=== PATIENT | female | born 1985 | race Hispanic/Latino ===

== ENCOUNTER 2016-12-28 21:32 | Emergency (ER) | payer BC ==
[2016-12-28 21:33] VITALS: BMI 17.4
--- NOTE | 2016-12-28 21:54 | ED PDOC ---
HPI: Chest Pain Time Seen by Provider: 12/28/16 21:35 Chief Complaint (Nursing): Palpitations Chief Complaint (Provider): Chest Pain/Palpitations History Per: Patient History/Exam Limitations: no limitations Onset/Duration Of Symptoms: Sudden Onset Current Symptoms Are (Timing): Still Present Severity: Moderate Quality: "Pain" Additional Complaint(s): Lisa Botello is a 31 y/o female, with a history of Diabetes Mellitus and Supraventricular Tachycardia, presenting to the ER on 12/28/2016 with a sudden onset of chest pain and palpitations. Patient reports chest pain worsens when she is coughs. Patient additionally states her coug/congestion prompted her current symptoms which is also associated with shortness of breath. She says she has had episodes of supraventricular tachycardia in the past. PMD-[facility] Past Medical History Reviewed: Historical Data, Nursing Documentation, Vital Signs Vital Signs: Last Vital Signs Temp 97.7 F 12/28/16 22:40 Pulse 95 H 12/28/16 23:52 Resp 16 12/28/16 23:52 BP 114/70 12/28/16 23:52 Pulse Ox 97 12/28/16 23:52 - Medical History PMH: Anxiety, Cardia Arrhythmia (SVT), Diabetes (IDDM), Kidney Stones, Chronic Kidney Disease - Surgical History Surgical History: Hernia Repair Other surgeries: lithotripsy - Family History Family History: States: Unknown Family Hx - Living Arrangements Living Arrangements: With Family - Social History Current smoker - smoking cessation education provided: No Alcohol: Occasional Drugs: Denies - Home Medications Home Medications: Ambulatory Orders Medication Instructions Recorded Insulin Aspart, Recombinant See Protocol QID PRN 06/18/15 [Novolog] Insulin Glargine,Hum.rec.anlog 26 units SC HS 06/18/15 [Lantus] Ciprofloxacin HCl [Cipro] 500 mg PO Q12 #8 tablet 09/03/16 Metronidazole [Flagyl] 500 mg PO Q8 #12 tab 09/03/16 Azithromycin [Z-Bharathi] 250 mg PO DAILY #6 tab 12/29/16 - Allergies Allergies/Adverse Reactions: Allergies Allergy/AdvReac Type Severity Reaction Status Date / Time No Known Allergies Allergy Verified 09/02/16 10:52 AMANDA Risk Score for UA/NSTEMI - AMANDA Risk Score Age > 64: NO 3 or more CAD Risk Factors: NO Known CAD (Stenosis greater than 50%): NO Aspirin use in past 7 days: NO Severe Angina: NO EKG ST changes greater than 0.5mm: NO Positive Cardiac Marker: NO AMANDA Score: 0 Risk %: 5% Wells Criteria for PE - Wells Criteria for Pulmonary Embolism Clinical Signs and Symptoms of DVT: No P.E is #1 Diagnosis, or Equally Likely: No Heart Rate >100: No Immobilization at least 3 days;Surgery previous 4 weeks: No Previous, objectively diagnosed PE or DVT: No Hemoptysis: No Malignancy w/treatment within 6 months, or palliative: No Total Score: 0 Review of Systems ROS Statement: Except As Marked, All Systems Reviewed And Found Negative ENT: Positive for: Nose Congestion Cardiovascular: Positive for: Chest Pain, Palpitations Respiratory: Positive for: Cough, Shortness of Breath Neurological: Negative for: Headache, Dizziness Physical Exam - Reviewed Nursing Documentation Reviewed: Yes Vital Signs Reviewed: Yes - Physical Exam Appears: Positive for: Non-toxic, No Acute Distress Head Exam: Positive for: ATRAUMATIC, NORMOCEPHALIC Skin: Positive for: Normal Color. Negative for: Rash Eye Exam: Positive for: Normal appearance, EOMI, PERRL Neck: Positive for: Normal, Painless ROM, Supple Cardiovascular/Chest: Positive for: Tachycardia (w/ regular rhythm ). Negative for: Murmur Respiratory: Positive for: Normal Breath Sounds. Negative for: Wheezing, Respiratory Distress Gastrointestinal/Abdominal: Positive for: Normal Exam, Soft. Negative for: Tenderness Extremity: Positive for: Normal ROM. Negative for: Deformity, Swelling Neurologic/Psych: Positive for: Alert, Oriented. Negative for: Motor/Sensory Deficits - Laboratory Results Result Diagrams: 12/28/16 22:36 12/28/16 22:36 - ECG ECG Rhythm: Positive for: Normal QRS, SVT (rate at 191 ), Nonspecific Changes - Radiology X-Ray: Interpreted by Me, Viewed By Me X-Ray Interpretation: No Acute Disease - Critical Care Total Time (In Min): 30 Medical Decision Making Medical Decision Makin:35 Initial Impression- Recurrent SVT; URI vs. Bronchitis Initial Plan- * EKG * CMP * Troponin * CBC w/ differential * CXR * Re-evaluate Total critical care time spent was 30 minutes. ACLS protocol was used for the pt 's SVT. Pt was administered Adenosine 6mg IV w/ successful conversion of the SVT to sinus rhythm noted. Second EKG was performed with the following interpretations: Sinus Tachycardia with a rate at 119 Normal QRS Nonspecific changes Documented by Hanna Cedeno, acting as a scribe for Ro Dior MD. All medical record entries made by the Scribe were at my direction and personally dictated by me. I have reviewed the chart and agree that the record accurately reflects my personal performance of the history, physical exam, medical decision making, and the department course for this patient. I have also personally directed, reviewed, and agree with the discharge instructions and disposition. Disposition - Clinical Impression Clinical Impression: Palpitations, Supraventricular arrhythmia - Patient ED Disposition Is Patient to be Admitted: No Doctor Will See Patient In The: Office Counseled Patient/Family Regarding: Studies Performed, Diagnosis, Need For Followup - Disposition Referrals: Maral Smith MD [Staff Provider] - Disposition: Routine/Home Disposition Time: 00:15 Condition: GOOD Additional Instructions: Avoid drinking alcohol. Follow up with order desk clerk within 1 week. Follow up with your PCP in 2-3 days. Prescriptions: Azithromycin [Z-Bharathi] 250 mg PO DAILY #6 tab Instructions: Supraventricular Tachycardia (ED)
[2016-12-28 22:40] VITALS: TEMP 97.7
[2016-12-28 22:46] LABS: BASO # 0.1 K/uL (0.0-0.2); BASO % 0.5 % (0.0-2.0); EOS # 0.5 K/uL (0.0-0.7); EOS % 4.4 % (0.0-4.0); HEMATOCRIT 41.2 % (34.0-47.0); LYMPH # 3.9 K/uL (1.0-4.3); LYMPH % 34.5 % (20.0-40.0); MEAN CELL VOLUME 91.2 fl (81.0-99.0); MEAN CORPUSCULAR HEMOGLOBIN 30.5 pg (27.0-31.0); MEAN CORPUSCULAR HGB CONC 33.4 g/dL (33.0-37.0); MEAN PLATELET VOLUME 8.4 fl (7.2-11.7); MONO # 0.7 K/uL (0.0-0.8); MONO % 5.9 % (0.0-10.0); NEUT # 6.2 K/uL (1.8-7.0); NEUT % 54.7 % (50.0-75.0); NRBC % 0.2 % (0.0-0.0); WHITE BLOOD COUNT 11.3 K/uL (4.8-10.8)
[2016-12-28 22:49] LABS: BLOOD UREA NITROGEN 17 mg/dl (7-17); CALCIUM 9.5 mg/dL (8.4-10.2); CARBON DIOXIDE 23 mmol/L (22-30); CHLORIDE 99 mmol/L (98-107); GFR AFRICAN-AMERICAN > 60; GLUCOSE,RANDOM 331 mg/dL (65-105); SODIUM 136 mmol/l (132-148)
[2016-12-28] MEDS ORDERED: Sodium Chloride 0.9% 1,000 ML IV STA (23:13)
[2016-12-28 23:53] VITALS: PULSE 95
[2016-12-29 00:31] VITALS: BP 111/56; RESP 18; O2SAT 100
[2016-12-29 05:22] LABS: POTASSIUM 4.7 MMOL/L (3.6-5.0)
--- NOTE | 2016-12-29 09:59 | RAD ---
PROCEDURE: CHEST RADIOGRAPH, 1 VIEW HISTORY: chest pain COMPARISON: 01/29/2016 FINDINGS: LUNGS: Clear. PLEURA: No pneumothorax or pleural fluid seen. CARDIOVASCULAR: Normal. OSSEOUS STRUCTURES: No significant abnormalities. VISUALIZED UPPER ABDOMEN: Normal. OTHER FINDINGS: In situ left-sided nipple ring. IMPRESSION: No active disease.
--- NOTE | 2016-12-29 13:25 | CARD ---
APPROVED REPORT EKG Measurement Heart [id number] <Conclusion> Sinus tachycardia Rightward axis Borderline ECG
== END 2016-12-29 00:46 | disposition home or self-care (01) ==
LOC: H.ER 21:32
DX: I47.1 Supraventricular tachycardia (principal); R07.89 Other chest pain
CPT/HCPCS: 71010; 80048; 82948; 84484; 85025; 93005; 96361; 96374; 99285; J0153; J7040